=== PATIENT | female | born 1990 ===

== ENCOUNTER 2019-01-25 18:53 | Inpatient (IN) | payer MEDICAID ==
[2019-01-25 18:53] VITALS: BMI 29.0
[2019-01-25] MEDS ORDERED: Albuterol-Ipratrop 3 mg / 0.5 (3 ml) UD ONE (19:17)
[2019-01-25] MEDS ORDERED: Albuterol-Ipratrop 3 mg / 0.5 (3 ml) UD IH STA (19:29)
[2019-01-25] MEDS ORDERED: Albuterol 0.083% Inhal Sol (2.5 mg/3 mL) UD IH STA (19:29)
--- NOTE | 2019-01-25 19:34 | C.PDOC ---
History Of Present Illness 28 year old female presents to the ED complaining of nonproductive cough and wheezing for the last 3 weeks. Reports it started off only at night time and now it is associated with chest tightness and shortness of breath. Notes cough is worse at night and when she lays down. States she was [place] [facility] [place] given inhaler but notes minimal relief. Also reports she used an inhaler when she was previously diagnosed with esophagitis and vocal cord inflammation but she does not use it daily. Denies history of asthma or any other pulmonary disease. Denies fever, chills, abdominal pain, headache, dizziness, lightheadedness, or any other symptoms. Chief Complaint (Nursing): Shortness Of Breath History Per: Patient History/Exam Limitations: no limitations Onset/Duration Of Symptoms: Days Current Symptoms Are (Timing): Still Present Quality: Tightness Exacerbating Factor(s): Coughing Current Respiratory Medications: Albuterol Associated Symptoms: Other (chest tightness ). denies: Fever, Chills, Productive Cough, Dizziness, Light-headedness Reports Recently: Seen In ED Past Medical History Reviewed: Historical Data, Nursing Documentation, Vital Signs Vital Signs: Last Vital Signs Temp 98.2 F 01/25/19 19:18 Pulse 108 H 01/25/19 19:18 Resp 22 01/25/19 19:27 BP 108/71 01/25/19 19:18 Pulse Ox 98 01/25/19 19:27 - Medical History PMH: Gastritis Denies: Colonic Polyps, Chronic Kidney Disease, TIA Surgical History: Appendectomy Family History: States: No Known Family Hx - Social History Hx Alcohol Use: No Hx Substance Use: No - Immunization History Hx Tetanus Toxoid Vaccination: No Hx Influenza Vaccination: No Hx Pneumococcal Vaccination: No Review Of Systems Constitutional: Negative for: Fever, Chills Cardiovascular: Positive for: Other (chest tightness ). Negative for: Palpitations, Light Headedness Respiratory: Positive for: Cough, Shortness of Breath, Wheezing Gastrointestinal: Negative for: Nausea, Vomiting, Abdominal Pain, Diarrhea Musculoskeletal: Negative for: Back Pain Skin: Negative for: Rash Neurological: Negative for: Headache, Dizziness Physical Exam - Physical Exam Appears: Non-toxic, No Acute Distress Skin: Warm, Dry, No Rash Head: Normacephalic Eye(s): bilateral: PERRL, EOMI Nose: Normal Oral Mucosa: Moist Neck: Supple Chest: Symmetrical Cardiovascular: Rhythm Regular Respiratory: Decreased Breath Sounds, No Rales, No Rhonchi, Wheezing (Diffused inspiratory and expiratory wheezing ) Gastrointestinal/Abdominal: Soft, No Tenderness, No Guarding, No Rebound Extremity: Bilateral: No Pedal Edema, Normal Color And Temperature, Normal ROM Neurological/Psych: Oriented x3, Normal Speech Gait: Steady ED Course And Treatment - Laboratory Results Result Diagrams: 01/25/19 19:36 01/25/19 19:36 Lab Interpretation: No Acute Changes O2 Sat by Pulse Oximetry: 98 (RA) Pulse Ox Interpretation: Normal - Radiology CXR: Interpreted by Me CXR Interpretation: Yes: No Acute Disease Reevaluation Time: 21:17 Reassessment Condition: Unchanged (Still with diffuse inspiratory and expiratory wheezing with diminished breath sounds. Heart rate is 120 and she is still c/o chest tightness and burning.) - Physician Consult Information Time Consulting Physician Contacted: 21:18 Physician Contacted: Jessy Roberson Outcome Of Conversation: Patient to be admitted for bronchodilators and IV steroids. Medical Decision Making Medical Decision Making: Plan - EKG - Bloodwork - HCG - Prednisone 60mg PO - Neb Treatment - CXR Disposition - Disposition Disposition: HOSPITALIZED Disposition Time: 22:53 Condition: FAIR - POA Present On Arrival: None - Clinical Impression Clinical Impression: Respiratory distress, Bronchitis, Acute bronchospasm - Scribe Statement The provider has reviewed the documentation as recorded by the Scribe Deja Sanches All medical record entries made by the Scribe were at my direction and personally dictated by me. I have reviewed the chart and agree that the record accurately reflects my personal performance of the history, physical exam, medical decision making, and the department course for this patient. I have also personally directed, reviewed, and agree with the discharge instructions and disposition.
[2019-01-25 19:39] LABS: BASO # 0.1 K/uL (0.0-0.2); BASO % 1.2 % (0.0-2.0); EOS # 0.9 K/uL (0.0-0.7); EOS % 9.2 % (0.0-4.0); HEMOGLOBIN 14.4 g/dL (11.0-16.0); LYMPH # 1.6 K/uL (1.0-4.3); LYMPH % 16.4 % (20.0-40.0); MEAN CORPUSCULAR HEMOGLOBIN 29.6 pg (27.0-31.0); MEAN CORPUSCULAR HGB CONC 33.2 g/dL (33.0-37.0); MEAN PLATELET VOLUME 9.8 fL (7.2-11.7); MONO # 0.6 K/uL (0.0-0.8); MONO % 6.2 % (0.0-10.0); NEUT # 6.5 K/uL (1.8-7.0); RBC 4.86 Mil/uL (3.80-5.20); RED CELL DISTRIBUTION WIDTH 14.6 % (11.5-14.5); WHITE BLOOD COUNT 9.8 K/uL (4.8-10.8)
[2019-01-25 19:54] LABS: ALB/GLOB RATIO 1.4 (1.0-2.1); ALBUMIN 4.9 g/dL (3.5-5.0); ALT/SGPT 33 U/L (9-52); AST/SGOT 24 U/L (14-36); BLOOD UREA NITROGEN 10 mg/dL (7-17); CALCIUM 9.9 mg/dl (8.6-10.4); GFR NON-AFRICAN AMERICAN > 60
[2019-01-26] MEDS: Albuterol-Ipratrop 3 mg / 0.5 (3 ml) UD INH SCH ×4 (01:36→19:59)
[2019-01-26] MEDS ORDERED: guaiFENesin 100 mg/5 ml Syrup UD PO ONE (04:56)
--- NOTE | 2019-01-26 07:38 | CP.PCM.PN ---
Subjective - Date & Time of Evaluation Date of Evaluation: 01/26/19 Time of Evaluation: 07:38 - Subjective Subjective: Medicine Progress Note - Dr Percy Roberson's service Patient is a 28 year old female with past medical history of eosinophilic esophagitis who presented to the emergency room for worsening shortness of breath. Patient states that her symptoms started 3 weeks ago and was associated with chest pain. She states that she was feeling out of breath. Symptoms progressively became worse and she developed a non-productive cough. She [place] [facility] [place] and was given nebulizer and albuterol with no improvement. 3 nights ago she reports waking up out of her sleep because she couldn't breath. Patient also states that she has been having episodes of vomiting after eating food that started 1 week ago. She can only tolerate liqui ds. When she eats solid food she feels like it is stuck in her chest. She has had 3 endoscopies in the past, the last one was performed on 10/2016 that showed esophagitis. Patient has not follow up with her GI doctor since that time. Allergies: NKDA Medications: Famotadine, Albuterol Medical History: Gastritis/Esophagitis Surgical History: C/S x 2, EGD x 3 Social History: Denies alcohol, tobacco, drug use; lives with and two children Family History: Grandmother - DM, Grandfather - DM, Mother - arthritis Objective - Vital Signs/Intake and Output Vital Signs (last 24 hours): Temp Pulse Resp BP Pulse Ox 97.7 F 83 20 108/73 96 01/26/19 00:20 01/26/19 00:20 01/26/19 00:20 01/26/19 00:20 01/26/19 05:01 Intake and Output: 01/26/19 01/26/19 06:59 18:59 Intake Total 120 Balance 120 - Medications Medications: Current Medications Albuterol/Ipratropium (Duoneb 3 Mg/0.5 Mg (3 Ml) Ud) 3 ml INH RQ6 [facility] Last Admin: 01/26/19 01:36 Dose: 3 ml Enoxaparin Sodium (Lovenox) 40 mg SC DAILY [facility] Azithromycin 500 mg/ Sodium (Chloride) 250 mls @ 250 mls/hr IVPB DAILY [facility]; Protocol Ceftriaxone Sodium 1 gm/ (Sodium Chloride) 100 mls @ 100 mls/hr IVPB DAILY [facility]; Protocol Influenza Virus Vaccine (Flucelvax Quad 7553-7707 Syr) 60 mcg IM .ONCE ONE Stop: 01/28/19 10:11 Methylprednisolone (Solu-Medrol) 40 mg IVPB Q8H [facility] Montelukast Sodium (Singulair) 10 mg PO DAILY [facility] Morphine Sulfate (Morphine) 2 mg IVP Q6 PRN PRN Reason: Pain, Mild (1-3) Last Admin: 01/25/19 23:18 Dose: 2 mg Pantoprazole Sodium (Protonix Ec Tab) 40 mg PO DAILY [facility] Pneumococcal Polyvalent Vaccine (Pneumovax 23 Vaccine) 0.5 ml IM .ONCE ONE Stop: 01/28/19 10:01 - Labs Labs: 01/25/19 19:36 01/25/19 19:36 - Constitutional Appears: Non-toxic, In Acute Distress - Head Exam Head Exam: ATRAUMATIC, NORMAL INSPECTION, NORMOCEPHALIC - Eye Exam Eye Exam: EOMI, Normal appearance - ENT Exam ENT Exam: Mucous Membranes Moist - Neck Exam Neck Exam: Full ROM. absent: Lymphadenopathy, Tenderness - Respiratory Exam Respiratory Exam: Decreased Breath Sounds, Wheezes. absent: Rales, Rhonchi - Cardiovascular Exam Cardiovascular Exam: REGULAR RHYTHM, +S1, +S2 - GI/Abdominal Exam GI & Abdominal Exam: Soft. absent: Guarding, Rigid, Tenderness - Extremities Exam Extremities Exam: Normal Inspection. absent: Calf Tenderness - Neurological Exam Neurological Exam: Alert, Awake, Normal Gait, Oriented x3 - Psychiatric Exam Psychiatric exam: Normal Affect, Normal Mood - Skin Skin Exam: Dry, Normal Color, Warm Assessment and Plan - Assessment and Plan (Free Text) Assessment: Respiratory Distress 2/2 Acute bronchospasm/bronchitis -Stable, afebrile -CXR showed no active disease -Antibiotics: Rocephin 1 gm daily, Azithromycin 250mg daily -Continue Solumedrol 40mg Q8H IVP -Duonebs Q4H prn shortness of breath -Mucinex 600mg PO BID and phenergen 5ml Q6H prn cough -Pulmonology on consult, Dr Leo, help appreciated Dysphagia -Patient admits to dysphagia to solids for the past week -Has not seen GI in 3 years -Last EGD 10/2019 showed eosinophilic esophagitis -GI on consult, Dr Hadley, help appreciated GI/DVT ppx: -Protonix 40mg IVP daily -Lovenox 40mg SC daily Plan discussed with Dr Percy Doss DO PGY-2
--- NOTE | 2019-01-26 09:14 | RAD ---
Date of service: 01/25/2019 PROCEDURE: CHEST RADIOGRAPH, 1 VIEW HISTORY: SOB COMPARISON: None available. FINDINGS: LUNGS: Clear. PLEURA: No pneumothorax or pleural fluid seen. CARDIOVASCULAR: No aortic atherosclerotic calcification present. Normal. OSSEOUS STRUCTURES: No significant abnormalities. VISUALIZED UPPER ABDOMEN: Normal. OTHER FINDINGS: None. IMPRESSION: No active disease.
[2019-01-26] MEDS ORDERED: Azithromycin 500 MG in Sodium Chloride 0.9% 250 ML IVPB SCH (10:00)
[2019-01-26] MEDS ORDERED: Pantoprazole 40 mg EC Tab PO SCH (10:00)
[2019-01-26] MEDS: guaiFENesin 600 mg ER Tab PO SCH ×2 (10:34→17:39)
[2019-01-26] MEDS: Enoxaparin 40 mg Syringe SC SCH (10:35)
[2019-01-26] MEDS: MethylPREDNISolone 40 mg Vial IVPB SCH ×2 (10:35→17:38)
[2019-01-26] MEDS: Azithromycin 500 MG in Sodium Chloride 0.9% 250 ML IVPB SCH (11:50)
--- NOTE | 2019-01-26 12:47 | CP.PCM.HP ---
Present on Admission - Present on Admission Any Indicators Present on Admission: No Past Patient History - Past Medical History & Family History Past Medical History?: Yes - Past Social History Smoking Status: Never Smoked - CARDIAC Hx Cardiac Disorders: No Hx Heart Attack: No - PULMONARY Hx Respiratory Disorders: No - NEUROLOGICAL Hx Transient Ischemic Attacks (TIA): No - HEENT Hx HEENT Problems: No - RENAL Hx Chronic Kidney Disease: No - ENDOCRINE/METABOLIC Hx Endocrine Disorders: No - HEMATOLOGICAL/ONCOLOGICAL Hx Blood Disorders: No - INTEGUMENTARY Hx Dermatological Problems: No - MUSCULOSKELETAL/RHEUMATOLOGICAL Hx Musculoskeletal Disorders: No - GASTROINTESTINAL Hx Gastritis: Yes - GENITOURINARY/GYNECOLOGICAL Hx Genitourinary Disorders: No - PSYCHIATRIC Hx Substance Use: No - SURGICAL HISTORY Hx Appendectomy: Yes - ANESTHESIA Hx Anesthesia: Yes Hx Anesthesia Reactions: No Hx Malignant Hyperthermia: No Meds Allergies/Adverse Reactions: Allergies Allergy/AdvReac Type Severity Reaction Status Date / Time No Known Allergies Allergy Verified 01/25/19 19:26 Physical Exam - Constitutional Appears: Well - Head Exam Head Exam: ATRAUMATIC, NORMAL INSPECTION, NORMOCEPHALIC - Eye Exam Eye Exam: EOMI, Normal appearance, PERRL Pupil Exam: NORMAL ACCOMODATION, PERRL - ENT Exam ENT Exam: Mucous Membranes Moist, Normal Exam - Neck Exam Neck exam: Positive for: Normal Inspection - Respiratory Exam Respiratory Exam: Decreased Breath Sounds - Cardiovascular Exam Cardiovascular Exam: REGULAR RHYTHM, +S1, +S2 - GI/Abdominal Exam GI & Abdominal Exam: Diminished Bowel Sounds, Soft - Rectal Exam Rectal Exam: Deferred Results - Vital Signs Recent Vital Signs: Last Vital Signs Temp 97.9 F 01/26/19 07:30 Pulse 79 01/26/19 07:30 Resp 20 01/26/19 07:30 BP 124/82 01/26/19 07:30 Pulse Ox 96 01/26/19 07:30 - Labs Result Diagrams: 01/27/19 06:41 01/27/19 06:41 Labs: Laboratory Results - last 24 hr 01/25/19 01/25/19 01/25/19 19:36 19:36 22:26 WBC 9.8 RBC 4.86 Hgb 14.4 Hct 43.2 MCV 89.0 MCH 29.6 MCHC 33.2 RDW 14.6 H Plt Count 304 MPV 9.8 Neut % (Auto) 67.0 Lymph % (Auto) 16.4 L Banner % (Auto) 6.2 Eos % (Auto) 9.2 H Baso % (Auto) 1.2 Neut # (Auto) 6.5 Lymph # (Auto) 1.6 Banner # (Auto) 0.6 Eos # (Auto) 0.9 H Baso # (Auto) 0.1 Sodium 137 Potassium 3.6 Chloride 102 Carbon Dioxide 23 Anion Gap 16 BUN 10 Creatinine 0.9 Est GFR ( Amer) > 60 Est GFR (Non-Af Amer) > 60 Random Glucose 92 Calcium 9.9 Total Bilirubin 0.5 AST 24 ALT 33 Alkaline Phosphatase 83 Total Protein 8.4 H Albumin 4.9 Globulin 3.5 Albumin/Globulin Ratio 1.4 Urine HCG, Qual Negative Assessment & Plan - Assessment and Plan (Free Text) Plan: Status post GI Status post pulmonary Hemoglobin 14 and 43 Potassium 3.6 As per the GI except of induced emesis advised continue Protonix and change diet to lactose and gluten-free Supportive care Discussed with Dr. Madsen Status post pulmonary also recommended IgE and total eosinophil count to rule out allergy versus ABPA Continue IV steroid and other medication as ordered duoneb iv antibiotic
--- NOTE | 2019-01-26 14:27 | CP.PCM.CON ---
<Hemalatha Ibanez - Last Filed: 01/26/19 18:34> History of Present Illness - History of Present Illness History of Present Illness: Gastroenterology Fellow/PGY6 Consult Note 28 year old female with PMH of Eosinophilic esophagitis (EoE), HLD and Asthma presenting with shortness of breath and cough. Patient describes progressive dry cough and shortness of breath leading to bilious vomiting episode at least once a week for the last three weeks. She notes dyspnea on exertion, chest pain with breathing, and difficulty sleeping due to gasping for air from wheezing despite inhaler use received [place] [facility] [place]. Admits to chronic heartburn and acid reflux for the last 3-4 years that led to EoE diagnosis in 10/2016 for which she completed a remote course of inhaler use and Omeprazole 30 minutes before breakfast daily for one month. Notes exacerbation of acid reflux and heartburn since respiratory symptoms have worsened in the last three weeks. Also admits to globus sensation when eating without vomiting, dysphagia, odynophagia, or choking that is more apparent with her present cough and wax/wanes over last three to four years with EoE diagnosis. Patient note she was planned for ENT and GI outpatient evaluations in the next one month. Prior EGD 07/2016 and 10/20- showed Eosinophilic esophagitis (EoE) and H pylori gastritis s/p triple therapy with confirmed eradication. No prior colonoscopy. Family History- denies Eosinophilic esophagitis, stomach cancer, colon cancer Social History- denies tobacco, alcohol, illicit drug use Surgical History- appendectomy, C-sectionx2 Review of Systems - Review of Systems Review of Systems: 12-point review of systems negative except for as above Past Patient History - Past Medical History & Family History Past Medical History?: Yes - Past Social History Smoking Status: Never Smoked - CARDIAC Hx Cardiac Disorders: No Hx Heart Attack: No - PULMONARY Hx Respiratory Disorders: No - NEUROLOGICAL Hx Transient Ischemic Attacks (TIA): No - HEENT Hx HEENT Problems: No - RENAL Hx Chronic Kidney Disease: No - ENDOCRINE/METABOLIC Hx Endocrine Disorders: No - HEMATOLOGICAL/ONCOLOGICAL Hx Blood Disorders: No - INTEGUMENTARY Hx Dermatological Problems: No - MUSCULOSKELETAL/RHEUMATOLOGICAL Hx Musculoskeletal Disorders: No - GASTROINTESTINAL Hx Gastritis: Yes - GENITOURINARY/GYNECOLOGICAL Hx Genitourinary Disorders: No - PSYCHIATRIC Hx Substance Use: No - SURGICAL HISTORY Hx Appendectomy: Yes - ANESTHESIA Hx Anesthesia: Yes Hx Anesthesia Reactions: No Hx Malignant Hyperthermia: No Meds Allergies/Adverse Reactions: Allergies Allergy/AdvReac Type Severity Reaction Status Date / Time No Known Allergies Allergy Verified 01/25/19 19:26 - Medications Medications: Current Medications Albuterol/Ipratropium (Duoneb 3 Mg/0.5 Mg (3 Ml) Ud) 3 ml INH RQ6 [facility] Last Admin: 01/26/19 08:15 Dose: 3 ml Enoxaparin Sodium (Lovenox) 40 mg SC DAILY [facility] Last Admin: 01/26/19 10:35 Dose: 40 mg Guaifenesin (Mucinex La) 600 mg PO BID [facility] Last Admin: 01/26/19 10:34 Dose: 600 mg Ceftriaxone Sodium 1 gm/ (Sodium Chloride) 100 mls @ 100 mls/hr IVPB DAILY [facility]; Protocol Last Admin: 01/26/19 10:33 Dose: 100 mls/hr Azithromycin 500 mg/ Sodium (Chloride) 250 mls @ 250 mls/hr IVPB Q24H [facility]; Protocol Last Admin: 01/26/19 11:50 Dose: 250 mls/hr Influenza Virus Vaccine (Flucelvax Quad [id number] Syr) 60 mcg IM .ONCE ONE Stop: 01/28/19 10:11 Methylprednisolone (Solu-Medrol) 40 mg IVPB Q8H [facility] Last Admin: 01/26/19 10:35 Dose: 40 mg Montelukast Sodium (Singulair) 10 mg PO Q24H [facility] Last Admin: 01/26/19 12:27 Dose: 10 mg Morphine Sulfate (Morphine) 2 mg IVP Q6 PRN PRN Reason: Pain, Mild (1-3) Last Admin: 01/25/19 23:18 Dose: 2 mg Pantoprazole Sodium (Protonix Ec Tab) 40 mg PO DAILY [facility] Last Admin: 01/26/19 10:41 Dose: 40 mg Pneumococcal Polyvalent Vaccine (Pneumovax 23 Vaccine) 0.5 ml IM .ONCE ONE Stop: 01/28/19 10:01 Promethazine HCl/Dextromethorphan (Phenergan Dm Syrup) 5 ml PO Q6H PRN PRN Reason: Cough Physical Exam - Constitutional Appears: Non-toxic - Head Exam Head Exam: NORMOCEPHALIC - Eye Exam Eye Exam: EOMI, PERRL. absent: Scleral icterus Pupil Exam: absent: Miosis, Mydriatic - ENT Exam ENT Exam: Mucous Membranes Moist, Normal Oropharynx - Neck Exam Neck exam: Positive for: Full Rom, Normal Inspection - Respiratory Exam Respiratory Exam: Wheezes. absent: Rales, Stridor Additional comments: diffuse wheezing noted in all lung patel - Cardiovascular Exam Cardiovascular Exam: RRR, +S1, +S2. absent: Gallop, Rubs - GI/Abdominal Exam GI & Abdominal Exam: Normal Bowel Sounds, Soft. absent: Distended, Firm, Guarding, Organomegaly, Rebound, Rigid, Tenderness - Extremities Exam Extremities exam: Positive for: normal inspection. Negative for: pedal edema - Neurological Exam Neurological exam: Alert - Psychiatric Exam Psychiatric exam: Normal Affect, Normal Mood - Skin Skin Exam: Dry, Intact, Normal Color, Warm Results - Vital Signs Recent Vital Signs: Last Vital Signs Temp 97.9 F 01/26/19 07:30 Pulse 79 01/26/19 07:30 Resp 20 01/26/19 07:30 BP 124/82 01/26/19 07:30 Pulse Ox 94 L 01/26/19 13:10 - Labs Result Diagrams: 01/25/19 19:36 01/25/19 19:36 Labs: Laboratory Results - last 24 hr 01/25/19 01/25/19 01/25/19 19:36 19:36 22:26 WBC 9.8 RBC 4.86 Hgb 14.4 Hct 43.2 MCV 89.0 MCH 29.6 MCHC 33.2 RDW 14.6 H Plt Count 304 MPV 9.8 Neut % (Auto) 67.0 Lymph % (Auto) 16.4 L Lawrence % (Auto) 6.2 Eos % (Auto) 9.2 H Baso % (Auto) 1.2 Neut # (Auto) 6.5 Lymph # (Auto) 1.6 Lawrence # (Auto) 0.6 Eos # (Auto) 0.9 H Baso # (Auto) 0.1 Sodium 137 Potassium 3.6 Chloride 102 Carbon Dioxide 23 Anion Gap 16 BUN 10 Creatinine 0.9 Est GFR ( Amer) > 60 Est GFR (Non-Af Amer) > 60 Random Glucose 92 Calcium 9.9 Total Bilirubin 0.5 AST 24 ALT 33 Alkaline Phosphatase 83 Total Protein 8.4 H Albumin 4.9 Globulin 3.5 Albumin/Globulin Ratio 1.4 Urine HCG, Qual Negative Assessment & Plan - Assessment and Plan (Free Text) Assessment: 28 year old female with PMH of Eosinophilic esophagitis (EoE), HLD and Asthma presenting with shortness of breath and cough. Active treatment of Bronchitis with GI consultation for vomiting and history of EoE. Prior EGD 07/2016 and 10/2016 showed Eosinophilic esophagitis (EoE) and H pylori gastritis s/p triple therapy with confirmed eradication. No prior colonoscopy. Plan: -likely cough-induced emesis-no further episodes since admission -acute on chronic dyspepsia in setting of noncompliance to treatment and physician follow up of eosinophilic esophagitis since 2015 -started Protonix 40mg BID -changed diet to lactose/gluten free, bite size for initiation of elimination diet in setting of eosinophilic esophagitis -supportive care- anti-emetics -primary team managing respiratory status- steroids, duonebs, antibiotic coverage -pulmonology consult- follow up recommendations -counselled on compliance and re-establishment of GI care -patient notes scheduled appointments with ENT and GI in one month -will benefit from elective endoscopic evaluation of EoE once respiratory status optimized -will follow clinical course <Lucho Hadley - Last Filed: 01/26/19 18:49> Meds - Medications Medications: Current Medications Albuterol/Ipratropium (Duoneb 3 Mg/0.5 Mg (3 Ml) Ud) 3 ml INH RQ6 [facility] Last Admin: 01/26/19 13:40 Dose: 3 ml Budesonide (Pulmicort Respules) 0.5 mg INH RQ12 [facility] Enoxaparin Sodium (Lovenox) 40 mg SC DAILY [facility] Last Admin: 01/26/19 10:35 Dose: 40 mg Guaifenesin (Mucinex La) 600 mg PO BID [facility] Last Admin: 01/26/19 17:39 Dose: 600 mg Ceftriaxone Sodium 1 gm/ (Sodium Chloride) 100 mls @ 100 mls/hr IVPB DAILY [facility]; Protocol Last Admin: 01/26/19 10:33 Dose: 100 mls/hr Azithromycin 500 mg/ Sodium (Chloride) 250 mls @ 250 mls/hr IVPB Q24H [facility]; Protocol Last Admin: 01/26/19 11:50 Dose: 250 mls/hr Influenza Virus Vaccine (Flucelvax Quad [id number] Syr) 60 mcg IM .ONCE ONE Stop: 01/27/19 10:01 Methylprednisolone (Solu-Medrol) 40 mg IVPB Q8H [facility] Last Admin: 01/26/19 17:38 Dose: 40 mg Montelukast Sodium (Singulair) 10 mg PO Q24H [facility] Last Admin: 01/26/19 12:27 Dose: 10 mg Montelukast Sodium (Singulair) 10 mg PO HS [facility] Morphine Sulfate (Morphine) 2 mg IVP Q6 PRN PRN Reason: Pain, Mild (1-3) Last Admin: 01/25/19 23:18 Dose: 2 mg Pantoprazole Sodium (Protonix Inj) 40 mg IVP Q12H [facility] Pneumococcal Polyvalent Vaccine (Pneumovax 23 Vaccine) 0.5 ml IM .ONCE ONE Stop: 01/27/19 10:01 Promethazine HCl/Dextromethorphan (Phenergan Dm Syrup) 5 ml PO Q6H PRN PRN Reason: Cough Results - Vital Signs Recent Vital Signs: Last Vital Signs Temp 98.2 F 01/26/19 15:00 Pulse 106 H 01/26/19 15:00 Resp 22 01/26/19 16:23 BP 109/66 01/26/19 15:00 Pulse Ox 95 01/26/19 18:29 - Labs Result Diagrams: 01/25/19 19:36 01/25/19 19:36 Labs: Laboratory Results - last 24 hr 01/25/19 01/25/19 01/25/19 19:36 19:36 22:26 WBC 9.8 RBC 4.86 Hgb 14.4 Hct 43.2 MCV 89.0 MCH 29.6 MCHC 33.2 RDW 14.6 H Plt Count 304 MPV 9.8 Neut % (Auto) 67.0 Lymph % (Auto) 16.4 L Lawrence % (Auto) 6.2 Eos % (Auto) 9.2 H Baso % (Auto) 1.2 Neut # (Auto) 6.5 Lymph # (Auto) 1.6 Lawrence # (Auto) 0.6 Eos # (Auto) 0.9 H Baso # (Auto) 0.1 Sodium 137 Potassium 3.6 Chloride 102 Carbon Dioxide 23 Anion Gap 16 BUN 10 Creatinine 0.9 Est GFR ( Amer) > 60 Est GFR (Non-Af Amer) > 60 Random Glucose 92 Calcium 9.9 Total Bilirubin 0.5 AST 24 ALT 33 Alkaline Phosphatase 83 Total Protein 8.4 H Albumin 4.9 Globulin 3.5 Albumin/Globulin Ratio 1.4 Urine HCG, Qual Negative Attending/Attestation - Attestation I have personally seen and examined this patient.: Yes I have fully participated in the care of the patient.: Yes I have reviewed all pertinent clinical information: Yes Notes (Text): 01/26/19 18:44 I have seen and examined patient with GI fellow. Agree with above documentation with the following additions. In brief, this is a 28 year old female with history of asthma, hyperlipidemia, eosinophillic esophagitis who presents to hospital with complaint of progressive cough and shortness of breath. She reports persistent non-productive cough leading to associated emesis for the past three weeks which has been worse over the past few days. She notes dyspnea on exertion and wheezing at rest despite medical therapy and was recently admitted at [facility] [place] for respiratory related issues. During this time she does note dysphagia to solids with a globus sensation but denies odynophagia or vomiting. She had an EGD in [address] Lerma which showed presence of EOE on biopsies from distal and mid esophagus and was told to follow up but did not do so. She denies fever/chills, weight loss, or change in bowel habits. Asthma Hyperlipidemia Cough, dyspnea EOE - Suggest diet as tolerated with modification to eliminate dairy/wheat as a part of initial food elimination therapy in EOE - Continue with PPI therapy - Follow up pulmonary recommendations for management of acute bronchitis - Patient would benefit from elective outpatient GI follow up with consideration of additional EOE therapy with endoscopic evaluation - Will continue to monitor patient clinical course
[2019-01-26] MEDS ORDERED: Pneumococcal 23-Valent Vaccine IM ONE (15:15)
[2019-01-26] MEDS ORDERED: Influenza Vaccine 60 mcg/0.5 mL SYR (4YR UP) IM ONE (15:15)
--- NOTE | 2019-01-26 18:21 | CP.PCM.CON ---
History of Present Illness - History of Present Illness History of Present Illness: Reason for consultation: Shortness of breath and cough 28-year-old female with history of asthma/eosinophilic esophagitis, hyperlipide yolanda admitted with shortness of breath and cough for the past 2-3 weeks. Patient states that she was seen in the emergency room at [facility] week ago. Denies fever chills, denies chest pain. Also complaining of heartburn and indigestion. Family History- denies Eosinophilic esophagitis, stomach cancer, colon cancer Social History- denies tobacco, alcohol, illicit drug use Surgical History- appendectomy, C-sectionx2 Review of Systems - Review of Systems All systems: reviewed and no additional remarkable complaints except (Shortness of breath and wheezing) Past Patient History - Past Medical History & Family History Past Medical History?: Yes - Past Social History Smoking Status: Never Smoked - CARDIAC Hx Cardiac Disorders: No Hx Heart Attack: No - PULMONARY Hx Respiratory Disorders: No - NEUROLOGICAL Hx Transient Ischemic Attacks (TIA): No - HEENT Hx HEENT Problems: No - RENAL Hx Chronic Kidney Disease: No - ENDOCRINE/METABOLIC Hx Endocrine Disorders: No - HEMATOLOGICAL/ONCOLOGICAL Hx Blood Disorders: No - INTEGUMENTARY Hx Dermatological Problems: No - MUSCULOSKELETAL/RHEUMATOLOGICAL Hx Musculoskeletal Disorders: No - GASTROINTESTINAL Hx Gastritis: Yes - GENITOURINARY/GYNECOLOGICAL Hx Genitourinary Disorders: No - PSYCHIATRIC Hx Substance Use: No - SURGICAL HISTORY Hx Appendectomy: Yes - ANESTHESIA Hx Anesthesia: Yes Hx Anesthesia Reactions: No Hx Malignant Hyperthermia: No Meds Allergies/Adverse Reactions: Allergies Allergy/AdvReac Type Severity Reaction Status Date / Time No Known Allergies Allergy Verified 01/25/19 19:26 - Medications Medications: Current Medications Albuterol/Ipratropium (Duoneb 3 Mg/0.5 Mg (3 Ml) Ud) 3 ml INH RQ6 [facility] Last Admin: 01/26/19 13:40 Dose: 3 ml Enoxaparin Sodium (Lovenox) 40 mg SC DAILY [facility] Last Admin: 01/26/19 10:35 Dose: 40 mg Guaifenesin (Mucinex La) 600 mg PO BID [facility] Last Admin: 01/26/19 17:39 Dose: 600 mg Ceftriaxone Sodium 1 gm/ (Sodium Chloride) 100 mls @ 100 mls/hr IVPB DAILY [facility]; Protocol Last Admin: 01/26/19 10:33 Dose: 100 mls/hr Azithromycin 500 mg/ Sodium (Chloride) 250 mls @ 250 mls/hr IVPB Q24H [facility]; Protocol Last Admin: 01/26/19 11:50 Dose: 250 mls/hr Influenza Virus Vaccine (Flucelvax Quad 7943-4587 Syr) 60 mcg IM .ONCE ONE Stop: 01/27/19 10:01 Methylprednisolone (Solu-Medrol) 40 mg IVPB Q8H [facility] Last Admin: 01/26/19 17:38 Dose: 40 mg Montelukast Sodium (Singulair) 10 mg PO Q24H [facility] Last Admin: 01/26/19 12:27 Dose: 10 mg Morphine Sulfate (Morphine) 2 mg IVP Q6 PRN PRN Reason: Pain, Mild (1-3) Last Admin: 01/25/19 23:18 Dose: 2 mg Pantoprazole Sodium (Protonix Inj) 40 mg IVP Q12H [facility] Pneumococcal Polyvalent Vaccine (Pneumovax 23 Vaccine) 0.5 ml IM .ONCE ONE Stop: 01/27/19 10:01 Promethazine HCl/Dextromethorphan (Phenergan Dm Syrup) 5 ml PO Q6H PRN PRN Reason: Cough Physical Exam - Head Exam Head Exam: ATRAUMATIC, NORMOCEPHALIC - Eye Exam Eye Exam: Normal appearance - ENT Exam ENT Exam: Mucous Membranes Moist - Neck Exam Neck exam: Positive for: Normal Inspection - Respiratory Exam Respiratory Exam: Rhonchi, Wheezes - Cardiovascular Exam Cardiovascular Exam: REGULAR RHYTHM - GI/Abdominal Exam GI & Abdominal Exam: Normal Bowel Sounds, Soft - Extremities Exam Extremities exam: Positive for: normal inspection - Neurological Exam Neurological exam: Alert, Oriented x3 Results - Vital Signs Recent Vital Signs: Last Vital Signs Temp 98.2 F 01/26/19 15:00 Pulse 106 H 01/26/19 15:00 Resp 22 01/26/19 16:23 BP 109/66 01/26/19 15:00 Pulse Ox 95 01/26/19 15:00 - Labs Result Diagrams: 01/27/19 06:41 01/27/19 06:41 Labs: Laboratory Results - last 24 hr 01/25/19 01/25/19 01/25/19 19:36 19:36 22:26 WBC 9.8 RBC 4.86 Hgb 14.4 Hct 43.2 MCV 89.0 MCH 29.6 MCHC 33.2 RDW 14.6 H Plt Count 304 MPV 9.8 Neut % (Auto) 67.0 Lymph % (Auto) 16.4 L Casey % (Auto) 6.2 Eos % (Auto) 9.2 H Baso % (Auto) 1.2 Neut # (Auto) 6.5 Lymph # (Auto) 1.6 Casey # (Auto) 0.6 Eos # (Auto) 0.9 H Baso # (Auto) 0.1 Sodium 137 Potassium 3.6 Chloride 102 Carbon Dioxide 23 Anion Gap 16 BUN 10 Creatinine 0.9 Est GFR ( Amer) > 60 Est GFR (Non-Af Amer) > 60 Random Glucose 92 Calcium 9.9 Total Bilirubin 0.5 AST 24 ALT 33 Alkaline Phosphatase 83 Total Protein 8.4 H Albumin 4.9 Globulin 3.5 Albumin/Globulin Ratio 1.4 Urine HCG, Qual Negative Assessment & Plan (1) Acute bronchospasm Assessment and Plan: Most likely secondary to asthma exacerbation Patient with very high eosinophil count, rule out secondary to allergy versus ABPA IgE level and total eosinophil count Continue IV steroids, Singulair and nebulizer treatment Peak flow every shift Status: Acute (2) Bronchitis Status: Acute
[2019-01-26] MEDS: Budesonide 0.5 mg/2 ml Inhal Susp UD INH SCH (19:59)
[2019-01-26] MEDS: Promethazine DM 6.25 mg-15 mg/5 ml Syrup PO PRN (20:48)
[2019-01-27] MEDS: MethylPREDNISolone 40 mg Vial IVPB SCH ×3 (00:34→16:49)
[2019-01-27] MEDS: Albuterol-Ipratrop 3 mg / 0.5 (3 ml) UD INH SCH ×4 (01:33→19:37)
[2019-01-27] MEDS: Promethazine DM 6.25 mg-15 mg/5 ml Syrup PO PRN (04:41)
[2019-01-27 06:52] LABS: BASO % 0.2 % (0.0-2.0); HEMOGLOBIN 13.1 g/dL (11.0-16.0); LYMPH # 1.1 K/uL (1.0-4.3); LYMPH % 5.9 % (20.0-40.0); MEAN CELL VOLUME 90.1 fL (81.0-99.0); MEAN CORPUSCULAR HEMOGLOBIN 29.2 pg (27.0-31.0); MEAN CORPUSCULAR HGB CONC 32.4 g/dL (33.0-37.0); MEAN PLATELET VOLUME 10.2 fL (7.2-11.7); MONO # 0.5 K/uL (0.0-0.8); MONO % 2.8 % (0.0-10.0); NEUT # 16.8 K/uL (1.8-7.0); NEUT % 91.1 % (50.0-75.0); PLATELET COUNT 301 K/uL (130-400); RBC 4.49 Mil/uL (3.80-5.20); RED CELL DISTRIBUTION WIDTH 14.3 % (11.5-14.5); WHITE BLOOD COUNT 18.5 K/uL (4.8-10.8)
[2019-01-27 08:01] LABS: ALB/GLOB RATIO 1.3 (1.0-2.1); ALBUMIN 4.2 g/dL (3.5-5.0); ALT/SGPT 24 U/L (9-52); AST/SGOT 23 U/L (14-36); BLOOD UREA NITROGEN 14 mg/dL (7-17); CALCIUM 9.7 mg/dl (8.6-10.4); GFR NON-AFRICAN AMERICAN > 60
--- NOTE | 2019-01-27 08:19 | CP.PCM.PN ---
<Hemalatha Ibanez - Last Filed: 01/27/19 11:01> Subjective - Date & Time of Evaluation Date of Evaluation: 01/27/19 Time of Evaluation: 08:14 - Subjective Subjective: Gastroenterology Fellow/PGY6 Progress Note Patient notes sore throat but resolved cough. Heartburn and acid reflux improving. Continues to have bloating. No bowel movement yesterday. A 12-point review of systems negative except for as above. Objective - Vital Signs/Intake and Output Vital Signs (last 24 hours): Temp Pulse Resp BP Pulse Ox 97.9 F 79 20 102/65 96 01/27/19 08:07 01/27/19 08:07 01/27/19 08:07 01/27/19 08:07 01/27/19 08:07 Intake and Output: 01/27/19 01/27/19 06:59 18:59 Intake Total 470 Balance 470 - Medications Medications: Current Medications Albuterol/Ipratropium (Duoneb 3 Mg/0.5 Mg (3 Ml) Ud) 3 ml INH RQ6 [facility] Last Admin: 01/27/19 01:33 Dose: 3 ml Budesonide (Pulmicort Respules) 0.5 mg INH RQ12 [facility] Last Admin: 01/26/19 19:59 Dose: 0.5 mg Enoxaparin Sodium (Lovenox) 40 mg SC DAILY [facility] Last Admin: 01/26/19 10:35 Dose: 40 mg Guaifenesin (Mucinex La) 600 mg PO BID [facility] Last Admin: 01/26/19 17:39 Dose: 600 mg Ceftriaxone Sodium 1 gm/ (Sodium Chloride) 100 mls @ 100 mls/hr IVPB DAILY [facility]; Protocol Last Admin: 01/26/19 10:33 Dose: 100 mls/hr Azithromycin 500 mg/ Sodium (Chloride) 250 mls @ 250 mls/hr IVPB Q24H [facility]; Protocol Last Admin: 01/26/19 11:50 Dose: 250 mls/hr Influenza Virus Vaccine (Flucelvax Quad 3898-5118 Syr) 60 mcg IM .ONCE ONE Stop: 01/27/19 10:01 Methylprednisolone (Solu-Medrol) 40 mg IVPB Q8H [facility] Last Admin: 01/27/19 00:34 Dose: 40 mg Montelukast Sodium (Singulair) 10 mg PO Q24H [facility] Last Admin: 01/26/19 12:27 Dose: 10 mg Montelukast Sodium (Singulair) 10 mg PO HS [facility] Last Admin: 01/26/19 21:42 Dose: 10 mg Morphine Sulfate (Morphine) 2 mg IVP Q6 PRN PRN Reason: Pain, Mild (1-3) Last Admin: 01/25/19 23:18 Dose: 2 mg Pantoprazole Sodium (Protonix Inj) 40 mg IVP Q12H [facility] Last Admin: 01/27/19 04:37 Dose: 40 mg Pneumococcal Polyvalent Vaccine (Pneumovax 23 Vaccine) 0.5 ml IM .ONCE ONE Stop: 01/27/19 10:01 Promethazine HCl/Dextromethorphan (Phenergan Dm Syrup) 5 ml PO Q6H PRN PRN Reason: Cough Last Admin: 01/27/19 04:41 Dose: 5 ml - Labs Labs: 01/27/19 06:41 01/27/19 06:41 - Constitutional Appears: Non-toxic, No Acute Distress - Head Exam Head Exam: ATRAUMATIC, NORMOCEPHALIC - Eye Exam Eye Exam: EOMI, PERRL. absent: Scleral icterus Pupil Exam: PERRL. absent: Miosis, Mydriatic - ENT Exam ENT Exam: Mucous Membranes Moist, Normal Oropharynx - Neck Exam Neck Exam: Full ROM, Normal Inspection - Respiratory Exam Respiratory Exam: Clear to Ausculation Bilateral. absent: Rales, Rhonchi, Wheezes - Cardiovascular Exam Cardiovascular Exam: RRR, +S1, +S2. absent: Gallop, Rubs - GI/Abdominal Exam GI & Abdominal Exam: Soft, Normal Bowel Sounds. absent: Distended, Firm, Guarding, Rigid, Tenderness, Organomegaly, Rebound - Extremities Exam Extremities Exam: Normal Inspection - Neurological Exam Neurological Exam: Alert, Awake - Psychiatric Exam Psychiatric exam: Normal Affect, Normal Mood - Skin Skin Exam: Dry, Intact, Normal Color, Warm Assessment and Plan - Assessment and Plan (Free Text) Assessment: 28 year old female with PMH of Eosinophilic esophagitis (EoE), HLD and Asthma presenting with shortness of breath and cough. Active treatment of Bronchitis with GI consultation for vomiting and history of EoE. Prior EGD 07/2016 and 10/2016 showed Eosinophilic esophagitis (EoE) and H pylori gastritis s/p triple therapy with confirmed eradication. No prior colonoscopy. Plan: -resolved cough-induced emesis -continue modified diet with initiation of elimination diet-dairy, wheat -pulmonology managing bronchitis- follow up recommendations -continue PPI BID on discharge for EoE management -recommend outpatient GI follow up for continued re-evaluation of EoE once respiratory status optimized for repeat endoscopic evaluation -please contact with questions or concerns <Lucho Hadley - Last Filed: 01/27/19 11:33> Objective - Vital Signs/Intake and Output Vital Signs (last 24 hours): Temp Pulse Resp BP Pulse Ox 97.9 F 79 20 102/65 96 01/27/19 08:07 01/27/19 08:07 01/27/19 08:07 01/27/19 08:07 01/27/19 08:07 Intake and Output: 01/27/19 01/27/19 06:59 18:59 Intake Total 470 Balance 470 - Medications Medications: Current Medications Albuterol/Ipratropium (Duoneb 3 Mg/0.5 Mg (3 Ml) Ud) 3 ml INH RQ6 [facility] Last Admin: 01/27/19 08:40 Dose: 3 ml Budesonide (Pulmicort Respules) 0.5 mg INH RQ12 [facility] Last Admin: 01/27/19 08:40 Dose: 0.5 mg Enoxaparin Sodium (Lovenox) 40 mg SC DAILY [facility] Last Admin: 01/27/19 09:16 Dose: 40 mg Guaifenesin (Mucinex La) 600 mg PO BID [facility] Last Admin: 01/27/19 09:17 Dose: 600 mg Ceftriaxone Sodium 1 gm/ (Sodium Chloride) 100 mls @ 100 mls/hr IVPB DAILY [facility]; Protocol Last Admin: 01/27/19 09:55 Dose: 100 mls/hr Azithromycin 500 mg/ Sodium (Chloride) 250 mls @ 250 mls/hr IVPB Q24H [facility]; Protocol Last Admin: 01/27/19 11:13 Dose: 250 mls/hr Methylprednisolone (Solu-Medrol) 40 mg IVPB Q8H [facility] Last Admin: 01/27/19 08:45 Dose: 40 mg Montelukast Sodium (Singulair) 10 mg PO Q24H [facility] Last Admin: 01/27/19 11:28 Dose: 10 mg Montelukast Sodium (Singulair) 10 mg PO HS [facility] Last Admin: 01/26/19 21:42 Dose: 10 mg Morphine Sulfate (Morphine) 2 mg IVP Q6 PRN PRN Reason: Pain, Mild (1-3) Last Admin: 01/25/19 23:18 Dose: 2 mg Pantoprazole Sodium (Protonix Inj) 40 mg IVP Q12H [facility] Last Admin: 01/27/19 04:37 Dose: 40 mg Promethazine HCl/Dextromethorphan (Phenergan Dm Syrup) 5 ml PO Q6H PRN PRN Reason: Cough Last Admin: 01/27/19 04:41 Dose: 5 ml - Labs Labs: 01/27/19 06:41 01/27/19 06:41 Attending/Attestation - Attestation I have personally seen and examined this patient.: Yes I have fully participated in the care of the patient.: Yes I have reviewed all pertinent clinical information, including history, physical exam and plan: Yes Notes (Text): 01/27/19 11:32 I have seen and examined patient with GI fellow. No acute events overnight, she is seen resting in bed comfortably. Cough is improved and she denies nausea, vomiting, fever/chills. Asthma, acute bronchitis EOE Hyperlipidemia - Diet as tolerated - Avoidance of dairy and wheat as part of 2 food elimination diet in EOE - Follow up pulmonary recommendations - Continue with PPI therapy - Patient would benefit from additional outpatient follow up with consideration of EGD to help guide EOE management. No further planned GI intervention at this time, will sign off case. Please reconsult as necessary, thank you.
[2019-01-27 08:37] LABS: BANDS 10 % (0-2); LYMPHOCYTE 2 % (20-40); MONOCYTE 1 % (0-10); NEUTROPHIL 85 % (50-75); PLATELET ESTIMATE NORMAL (NORMAL); REACTIVE LYMPHOCYTES 2 % (0-0); TOTAL CELLS COUNTED 100
[2019-01-27] MEDS: Budesonide 0.5 mg/2 ml Inhal Susp UD INH SCH ×2 (08:40→19:37)
[2019-01-27] MEDS: Enoxaparin 40 mg Syringe SC SCH (09:16)
[2019-01-27] MEDS: guaiFENesin 600 mg ER Tab PO SCH ×2 (09:17→17:00)
[2019-01-27] MEDS ORDERED: Pneumococcal 23-Valent Vaccine IM ONE (10:00)
[2019-01-27] MEDS ORDERED: Influenza Vaccine 60 mcg/0.5 mL SYR (4YR UP) IM ONE (10:00)
--- NOTE | 2019-01-27 10:00 | CP.PCM.PN ---
Subjective - Date & Time of Evaluation Date of Evaluation: 01/27/19 Time of Evaluation: 08:00 - Subjective Subjective: Patient seen and examined Breathing and cough improving Afebrile Awake and responsive Objective - Vital Signs/Intake and Output Vital Signs (last 24 hours): Temp Pulse Resp BP Pulse Ox 97.9 F 79 20 102/65 96 01/27/19 08:07 01/27/19 08:07 01/27/19 08:07 01/27/19 08:07 01/27/19 08:07 Intake and Output: 01/27/19 01/27/19 06:59 18:59 Intake Total 470 Balance 470 - Medications Medications: Current Medications Albuterol/Ipratropium (Duoneb 3 Mg/0.5 Mg (3 Ml) Ud) 3 ml INH RQ6 [facility] Last Admin: 01/27/19 01:33 Dose: 3 ml Budesonide (Pulmicort Respules) 0.5 mg INH RQ12 [facility] Last Admin: 01/26/19 19:59 Dose: 0.5 mg Enoxaparin Sodium (Lovenox) 40 mg SC DAILY [facility] Last Admin: 01/27/19 09:16 Dose: 40 mg Guaifenesin (Mucinex La) 600 mg PO BID [facility] Last Admin: 01/27/19 09:17 Dose: 600 mg Ceftriaxone Sodium 1 gm/ (Sodium Chloride) 100 mls @ 100 mls/hr IVPB DAILY [facility]; Protocol Last Admin: 01/27/19 09:55 Dose: 100 mls/hr Azithromycin 500 mg/ Sodium (Chloride) 250 mls @ 250 mls/hr IVPB Q24H [facility]; Protocol Last Admin: 01/26/19 11:50 Dose: 250 mls/hr Influenza Virus Vaccine (Flucelvax Quad [id number] Syr) 60 mcg IM .ONCE ONE Stop: 01/27/19 10:01 Last Admin: 01/27/19 09:16 Dose: 60 mcg Methylprednisolone (Solu-Medrol) 40 mg IVPB Q8H [facility] Last Admin: 01/27/19 08:45 Dose: 40 mg Montelukast Sodium (Singulair) 10 mg PO Q24H [facility] Last Admin: 01/26/19 12:27 Dose: 10 mg Montelukast Sodium (Singulair) 10 mg PO HS [facility] Last Admin: 01/26/19 21:42 Dose: 10 mg Morphine Sulfate (Morphine) 2 mg IVP Q6 PRN PRN Reason: Pain, Mild (1-3) Last Admin: 01/25/19 23:18 Dose: 2 mg Pantoprazole Sodium (Protonix Inj) 40 mg IVP Q12H [facility] Last Admin: 01/27/19 04:37 Dose: 40 mg Pneumococcal Polyvalent Vaccine (Pneumovax 23 Vaccine) 0.5 ml IM .ONCE ONE Stop: 01/27/19 10:01 Last Admin: 01/27/19 09:18 Dose: Not Given Promethazine HCl/Dextromethorphan (Phenergan Dm Syrup) 5 ml PO Q6H PRN PRN Reason: Cough Last Admin: 01/27/19 04:41 Dose: 5 ml - Labs Labs: 01/27/19 06:41 01/27/19 06:41 - Head Exam Head Exam: ATRAUMATIC, NORMOCEPHALIC - ENT Exam ENT Exam: Mucous Membranes Moist - Neck Exam Neck Exam: Normal Inspection - Respiratory Exam Respiratory Exam: Rhonchi - Cardiovascular Exam Cardiovascular Exam: REGULAR RHYTHM - GI/Abdominal Exam GI & Abdominal Exam: Soft, Normal Bowel Sounds - Extremities Exam Extremities Exam: Normal Inspection - Neurological Exam Neurological Exam: Alert Assessment and Plan (1) Acute bronchospasm Assessment & Plan: Secondary to asthma exacerbation with elevated eosinophil count and the CBC Unlikely ABPA with normal total eosinophil count Continue IV steroids, nebulizer treatment and Singulair Follow-up IgE level Status: Acute (2) Bronchitis Status: Acute
[2019-01-27] MEDS: Azithromycin 500 MG in Sodium Chloride 0.9% 250 ML IVPB SCH (11:13)
--- NOTE | 2019-01-27 12:25 | CP.PCM.PN ---
Subjective - Date & Time of Evaluation Date of Evaluation: 01/27/19 Time of Evaluation: 12:25 - Subjective Subjective: Medicine Progress Note: Dr. Renu Roberson Service Patient seen and examined at bedside. Per nursing no acute events occurred overnight. Patient still reporting cough during today's examination. Patient denies any fevers, chills, headaches, dizziness, syncopal episodes, or any other complaints. Objective - Vital Signs/Intake and Output Vital Signs (last 24 hours): Temp Pulse Resp BP Pulse Ox 97.9 F 79 20 102/65 96 01/27/19 08:07 01/27/19 08:07 01/27/19 08:07 01/27/19 08:07 01/27/19 08:07 Intake and Output: 01/27/19 01/27/19 06:59 18:59 Intake Total 470 Balance 470 - Medications Medications: Current Medications Albuterol/Ipratropium (Duoneb 3 Mg/0.5 Mg (3 Ml) Ud) 3 ml INH RQ6 [facility] Last Admin: 01/27/19 08:40 Dose: 3 ml Budesonide (Pulmicort Respules) 0.5 mg INH RQ12 [facility] Last Admin: 01/27/19 08:40 Dose: 0.5 mg Enoxaparin Sodium (Lovenox) 40 mg SC DAILY [facility] Last Admin: 01/27/19 09:16 Dose: 40 mg Guaifenesin (Mucinex La) 600 mg PO BID [facility] Last Admin: 01/27/19 09:17 Dose: 600 mg Ceftriaxone Sodium 1 gm/ (Sodium Chloride) 100 mls @ 100 mls/hr IVPB DAILY [facility]; Protocol Last Admin: 01/27/19 09:55 Dose: 100 mls/hr Azithromycin 500 mg/ Sodium (Chloride) 250 mls @ 250 mls/hr IVPB Q24H [facility]; Protocol Last Admin: 01/27/19 11:13 Dose: 250 mls/hr Methylprednisolone (Solu-Medrol) 40 mg IVPB Q8H [facility] Last Admin: 01/27/19 08:45 Dose: 40 mg Montelukast Sodium (Singulair) 10 mg PO Q24H [facility] Last Admin: 01/27/19 11:28 Dose: 10 mg Montelukast Sodium (Singulair) 10 mg PO HS [facility] Last Admin: 01/26/19 21:42 Dose: 10 mg Morphine Sulfate (Morphine) 2 mg IVP Q6 PRN PRN Reason: Pain, Mild (1-3) Last Admin: 01/25/19 23:18 Dose: 2 mg Pantoprazole Sodium (Protonix Inj) 40 mg IVP Q12H [facility] Last Admin: 01/27/19 04:37 Dose: 40 mg Promethazine HCl/Dextromethorphan (Phenergan Dm Syrup) 5 ml PO Q6H PRN PRN Reason: Cough Last Admin: 01/27/19 04:41 Dose: 5 ml - Labs Labs: 01/27/19 06:41 01/27/19 06:41 - Head Exam Head Exam: ATRAUMATIC, NORMAL INSPECTION - Eye Exam Eye Exam: EOMI, Normal appearance, PERRL Pupil Exam: NORMAL ACCOMODATION, PERRL - ENT Exam ENT Exam: Mucous Membranes Moist, Normal Oropharynx - Respiratory Exam Respiratory Exam: Clear to Ausculation Bilateral, NORMAL BREATHING PATTERN. absent: Prolonged Expiratory Phase, Respiratory Distress - Cardiovascular Exam Cardiovascular Exam: REGULAR RHYTHM, +S1, +S2 - GI/Abdominal Exam GI & Abdominal Exam: Soft, Normal Bowel Sounds Assessment and Plan - Assessment and Plan (Free Text) Plan: Respiratory Distress 2/2 Acute bronchospasm/bronchitis -Stable, afebrile -CXR showed no active disease -Antibiotics: Rocephin 1 gm daily, Azithromycin 250mg daily -Continue Solumedrol 40mg Q8H IVP -Duonebs Q4H prn shortness of breath -Layinfavi71ne PO Q24 [facility] -Morphine 2mg IVP Q6 PRN -Mucinex 600mg PO BID and phenergen 5ml Q6H prn cough -Pulmonology on consult, Dr Leo, help appreciated Dysphagia -Patient admits to dysphagia to solids for the past week -Has not seen GI in 3 years -Last EGD 10/2019 showed eosinophilic esophagitis -GI on consult, Dr Hadley, help appreciated -resolved cough-induced emesis -continue modified diet with initiation of elimination diet-dairy, wheat -pulmonology managing bronchitis- follow up recommendations -continue PPI BID on discharge for EoE management -recommend outpatient GI follow up for continued re-evaluation of EoE once respiratory status optimized for repeat endoscopic evaluation -please contact with questions or concerns GI/DVT ppx: -Protonix 40mg IVP daily -Lovenox 40mg SC daily Dispo: Patient likely to be discharged tomorrow. F/u with GI as an outpatient basis. Plan discussed with Dr Percy Conrad, PGY-2
--- NOTE | 2019-01-27 19:38 | CP.PCM.PN ---
Subjective - Date & Time of Evaluation Date of Evaluation: 01/27/19 - Subjective Subjective: no nausea no dizziness no vomiting no diarrhea Objective - Vital Signs/Intake and Output Vital Signs (last 24 hours): Temp Pulse Resp BP Pulse Ox 97.9 F 86 20 117/69 96 01/27/19 16:00 01/27/19 16:00 01/27/19 16:00 01/27/19 16:00 01/27/19 16:00 Intake and Output: 01/27/19 01/28/19 18:59 06:59 Intake Total 200 Balance 200 - Medications Medications: Current Medications Albuterol/Ipratropium (Duoneb 3 Mg/0.5 Mg (3 Ml) Ud) 3 ml INH RQ6 [facility] Last Admin: 01/27/19 13:20 Dose: 3 ml Budesonide (Pulmicort Respules) 0.5 mg INH RQ12 [facility] Last Admin: 01/27/19 08:40 Dose: 0.5 mg Enoxaparin Sodium (Lovenox) 40 mg SC DAILY [facility] Last Admin: 01/27/19 09:16 Dose: 40 mg Guaifenesin (Mucinex La) 600 mg PO BID [facility] Last Admin: 01/27/19 17:00 Dose: 600 mg Ceftriaxone Sodium 1 gm/ (Sodium Chloride) 100 mls @ 100 mls/hr IVPB DAILY [facility]; Protocol Last Admin: 01/27/19 09:55 Dose: 100 mls/hr Azithromycin 500 mg/ Sodium (Chloride) 250 mls @ 250 mls/hr IVPB Q24H [facility]; Protocol Last Admin: 01/27/19 11:13 Dose: 250 mls/hr Methylprednisolone (Solu-Medrol) 40 mg IVPB Q8H [facility] Last Admin: 01/27/19 16:49 Dose: 40 mg Montelukast Sodium (Singulair) 10 mg PO HS [facility] Last Admin: 01/26/19 21:42 Dose: 10 mg Morphine Sulfate (Morphine) 2 mg IVP Q6 PRN PRN Reason: Pain, Mild (1-3) Last Admin: 01/25/19 23:18 Dose: 2 mg Pantoprazole Sodium (Protonix Inj) 40 mg IVP Q12H [facility] Last Admin: 01/27/19 16:50 Dose: 40 mg Promethazine HCl/Dextromethorphan (Phenergan Dm Syrup) 5 ml PO Q6H PRN PRN Reason: Cough Last Admin: 01/27/19 04:41 Dose: 5 ml - Labs Labs: 01/27/19 06:41 01/27/19 06:41 - Constitutional Appears: Well - Head Exam Head Exam: ATRAUMATIC, NORMAL INSPECTION, NORMOCEPHALIC - Eye Exam Eye Exam: EOMI, Normal appearance, PERRL Pupil Exam: NORMAL ACCOMODATION, PERRL - ENT Exam ENT Exam: Mucous Membranes Moist, Normal Exam - Neck Exam Neck Exam: Full ROM, Normal Inspection. absent: Lymphadenopathy - Respiratory Exam Respiratory Exam: Decreased Breath Sounds - Cardiovascular Exam Cardiovascular Exam: REGULAR RHYTHM, +S1, +S2 - GI/Abdominal Exam GI & Abdominal Exam: Soft, Diminished Bowel Sounds - Rectal Exam Rectal Exam: Deferred Assessment and Plan - Assessment and Plan (Free Text) Plan: patient examined today labs reviewed vitals reviewed medications reviewed azithromycin 500mg ceftriaxone sodium 1gm duoneb 3mg/0.5mg 3ml ud lovenox morphine mucinex la phenergan dm syrup protonix inj pulmicort respules singulair solu-medrol
[2019-01-28] MEDS: MethylPREDNISolone 40 mg Vial IVPB SCH ×3 (00:09→16:20)
[2019-01-28] MEDS: Albuterol-Ipratrop 3 mg / 0.5 (3 ml) UD INH SCH ×4 (02:07→19:57)
[2019-01-28 07:44] LABS: BASO % 0.2 % (0.0-2.0); HEMOGLOBIN 13.2 g/dL (11.0-16.0); LYMPH # 1.4 K/uL (1.0-4.3); LYMPH % 9.7 % (20.0-40.0); MEAN CELL VOLUME 89.9 fL (81.0-99.0); MEAN CORPUSCULAR HEMOGLOBIN 29.8 pg (27.0-31.0); MEAN CORPUSCULAR HGB CONC 33.2 g/dL (33.0-37.0); MEAN PLATELET VOLUME 10.3 fL (7.2-11.7); MONO # 0.5 K/uL (0.0-0.8); MONO % 3.1 % (0.0-10.0); NEUT # 12.8 K/uL (1.8-7.0); PLATELET COUNT 306 K/uL (130-400); RBC 4.41 Mil/uL (3.80-5.20); RED CELL DISTRIBUTION WIDTH 14.6 % (11.5-14.5); WHITE BLOOD COUNT 14.7 K/uL (4.8-10.8)
[2019-01-28 08:01] VITALS: RESP 20
[2019-01-28 08:05] LABS: ALB/GLOB RATIO 1.3 (1.0-2.1); ALBUMIN 4.1 g/dL (3.5-5.0); ALT/SGPT 28 U/L (9-52); AST/SGOT 18 U/L (14-36); BLOOD UREA NITROGEN 13 mg/dL (7-17); CALCIUM 9.6 mg/dl (8.6-10.4); GFR NON-AFRICAN AMERICAN > 60
[2019-01-28] MEDS: Budesonide 0.5 mg/2 ml Inhal Susp UD INH SCH ×2 (08:25→19:57)
[2019-01-28] MEDS: Enoxaparin 40 mg Syringe SC SCH (09:21)
[2019-01-28] MEDS: guaiFENesin 600 mg ER Tab PO SCH ×2 (09:21→18:02)
--- NOTE | 2019-01-28 10:11 | CP.PCM.PN ---
Subjective - Date & Time of Evaluation Date of Evaluation: 01/28/19 Time of Evaluation: 07:00 - Subjective Subjective: Patient seen and examined Breathing much improved Slight cough Nauseous in the morning Afebrile Objective - Vital Signs/Intake and Output Vital Signs (last 24 hours): Temp Pulse Resp BP Pulse Ox 97.5 F L 67 20 117/70 97 01/28/19 08:00 01/28/19 08:00 01/28/19 08:00 01/28/19 08:00 01/28/19 08:00 Intake and Output: 01/28/19 01/28/19 06:59 18:59 Intake Total 400 Balance 400 - Medications Medications: Current Medications Albuterol/Ipratropium (Duoneb 3 Mg/0.5 Mg (3 Ml) Ud) 3 ml INH RQ6 [facility] Last Admin: 01/28/19 08:25 Dose: 3 ml Budesonide (Pulmicort Respules) 0.5 mg INH RQ12 [facility] Last Admin: 01/28/19 08:25 Dose: 0.5 mg Enoxaparin Sodium (Lovenox) 40 mg SC DAILY [facility] Last Admin: 01/28/19 09:21 Dose: 40 mg Guaifenesin (Mucinex La) 600 mg PO BID [facility] Last Admin: 01/28/19 09:21 Dose: 600 mg Ceftriaxone Sodium 1 gm/ (Sodium Chloride) 100 mls @ 100 mls/hr IVPB DAILY [facility]; Protocol Last Admin: 01/28/19 09:42 Dose: 100 mls/hr Azithromycin 500 mg/ Sodium (Chloride) 250 mls @ 250 mls/hr IVPB Q24H [facility]; Protocol Last Admin: 01/27/19 11:13 Dose: 250 mls/hr Methylprednisolone (Solu-Medrol) 40 mg IVPB Q8H [facility] Last Admin: 01/28/19 08:58 Dose: 40 mg Montelukast Sodium (Singulair) 10 mg PO HS [facility] Last Admin: 01/27/19 21:02 Dose: 10 mg Morphine Sulfate (Morphine) 2 mg IVP Q6 PRN PRN Reason: Pain, Mild (1-3) Last Admin: 01/25/19 23:18 Dose: 2 mg Pantoprazole Sodium (Protonix Inj) 40 mg IVP Q12H [facility] Last Admin: 03/30/19 05:16 Dose: 40 mg Promethazine HCl/Dextromethorphan (Phenergan Dm Syrup) 5 ml PO Q6H PRN PRN Reason: Cough Last Admin: 01/27/19 04:41 Dose: 5 ml - Labs Labs: 01/28/19 07:26 01/28/19 07:26 - Head Exam Head Exam: ATRAUMATIC, NORMOCEPHALIC - ENT Exam ENT Exam: Mucous Membranes Moist - Neck Exam Neck Exam: Normal Inspection - Respiratory Exam Respiratory Exam: Clear to Ausculation Bilateral - Cardiovascular Exam Cardiovascular Exam: REGULAR RHYTHM Assessment and Plan (1) Acute bronchospasm Assessment & Plan: Secondary to asthma Discharge patient home on prednisone, rescue inhaler, Singulair And ICS Stable from pulmonary standpoint Follow-up in the office Status: Acute (2) Bronchitis Status: Acute
--- NOTE | 2019-01-28 10:22 | CP.PCM.PN ---
Subjective - Date & Time of Evaluation Date of Evaluation: 01/28/19 - Subjective Subjective: mildly nauseous although feels much betterinterms of sob and cough has reduced significantly no fever no vomitting Objective - Vital Signs/Intake and Output Vital Signs (last 24 hours): Temp Pulse Resp BP Pulse Ox 97.5 F L 67 20 117/70 97 01/28/19 08:00 01/28/19 08:00 01/28/19 08:00 01/28/19 08:00 01/28/19 08:00 Intake and Output: 01/28/19 01/28/19 06:59 18:59 Intake Total 400 Balance 400 - Medications Medications: Current Medications Albuterol/Ipratropium (Duoneb 3 Mg/0.5 Mg (3 Ml) Ud) 3 ml INH RQ6 ASHLEY Last Admin: 01/28/19 08:25 Dose: 3 ml Budesonide (Pulmicort Respules) 0.5 mg INH RQ12 ASHLEY Last Admin: 01/28/19 08:25 Dose: 0.5 mg Enoxaparin Sodium (Lovenox) 40 mg SC DAILY ASHLEY Last Admin: 01/28/19 09:21 Dose: 40 mg Guaifenesin (Mucinex La) 600 mg PO BID ASHLEY Last Admin: 01/28/19 09:21 Dose: 600 mg Ceftriaxone Sodium 1 gm/ (Sodium Chloride) 100 mls @ 100 mls/hr IVPB DAILY [facility]; Protocol Last Admin: 01/28/19 09:42 Dose: 100 mls/hr Azithromycin 500 mg/ Sodium (Chloride) 250 mls @ 250 mls/hr IVPB Q24H ASHLEY; Protocol Last Admin: 01/27/19 11:13 Dose: 250 mls/hr Methylprednisolone (Solu-Medrol) 40 mg IVPB Q8H ASHLEY Last Admin: 01/28/19 08:58 Dose: 40 mg Montelukast Sodium (Singulair) 10 mg PO HS ASHLEY Last Admin: 01/27/19 21:02 Dose: 10 mg Morphine Sulfate (Morphine) 2 mg IVP Q6 PRN PRN Reason: Pain, Mild (1-3) Last Admin: 01/25/19 23:18 Dose: 2 mg Pantoprazole Sodium (Protonix Inj) 40 mg IVP Q12H ASHLEY Last Admin: 01/28/19 05:16 Dose: 40 mg Promethazine HCl/Dextromethorphan (Phenergan Dm Syrup) 5 ml PO Q6H PRN PRN Reason: Cough Last Admin: 01/27/19 04:41 Dose: 5 ml - Labs Labs: 01/28/19 07:26 01/28/19 07:26 - Constitutional Appears: Well - Head Exam Head Exam: ATRAUMATIC, NORMAL INSPECTION, NORMOCEPHALIC - Eye Exam Eye Exam: EOMI, Normal appearance, PERRL Pupil Exam: NORMAL ACCOMODATION, PERRL - ENT Exam ENT Exam: Mucous Membranes Moist, Normal Exam - Neck Exam Neck Exam: Full ROM, Normal Inspection. absent: Lymphadenopathy - Respiratory Exam Respiratory Exam: Decreased Breath Sounds - Cardiovascular Exam Cardiovascular Exam: REGULAR RHYTHM, +S1, +S2 - GI/Abdominal Exam GI & Abdominal Exam: Soft, Diminished Bowel Sounds - Rectal Exam Rectal Exam: Deferred Assessment and Plan - Assessment and Plan (Free Text) Plan: patient evaluated today medication reviewed azithromycin 500mg ceftriaxone sodium 1gm cepacol sore throat dunoeb duoneb 3mg/0.5 mg 3ml ud lovenox morphine mucinex la phenergan dm syrup protonix inj pulmicort respules singulair solu-medrol labs and vitals reviewed
[2019-01-28 10:23] LABS: ANISOCYTOSIS SLIGHT; BANDS 1 % (0-2); LYMPHOCYTE 8 % (20-40); MONOCYTE 2 % (0-10); NEUTROPHIL 89 % (50-75); PLATELET ESTIMATE NORMAL (NORMAL); TOTAL CELLS COUNTED 100
[2019-01-28 10:24] LABS: LARGE PLATELETS PRESENT
[2019-01-28] MEDS: Azithromycin 500 MG in Sodium Chloride 0.9% 250 ML IVPB SCH (10:48)
[2019-01-28] MEDS ORDERED: Benzocaine/Menthol (Cepacol) Lozenge MT PRN (12:18)
[2019-01-28] MEDS: Promethazine DM 6.25 mg-15 mg/5 ml Syrup PO PRN (17:56)
[2019-01-29] MEDS: MethylPREDNISolone 40 mg Vial IVPB SCH ×3 (00:50→16:20)
[2019-01-29] MEDS: Albuterol-Ipratrop 3 mg / 0.5 (3 ml) UD INH SCH ×4 (03:00→20:23)
[2019-01-29 08:50] LABS: BASO # 0.1 K/uL (0.0-0.2); BASO % 0.6 % (0.0-2.0); HEMOGLOBIN 13.8 g/dL (11.0-16.0); LYMPH # 1.6 K/uL (1.0-4.3); LYMPH % 13.1 % (20.0-40.0); MEAN CELL VOLUME 90.3 fL (81.0-99.0); MEAN CORPUSCULAR HEMOGLOBIN 30.2 pg (27.0-31.0); MEAN CORPUSCULAR HGB CONC 33.5 g/dL (33.0-37.0); MEAN PLATELET VOLUME 9.9 fL (7.2-11.7); MONO # 0.7 K/uL (0.0-0.8); NEUT % 80.3 % (50.0-75.0); NRBC % 0.1 % (0.0-2.0); RBC 4.57 Mil/uL (3.80-5.20); RED CELL DISTRIBUTION WIDTH 14.6 % (11.5-14.5); WHITE BLOOD COUNT 12.5 K/uL (4.8-10.8)
[2019-01-29] MEDS: Budesonide 0.5 mg/2 ml Inhal Susp UD INH SCH ×2 (09:00→20:23)
[2019-01-29 09:01] LABS: ALB/GLOB RATIO 1.5 (1.0-2.1); ALBUMIN 4.3 g/dL (3.5-5.0); ALT/SGPT 38 U/L (9-52); AST/SGOT 29 U/L (14-36); BLOOD UREA NITROGEN 13 mg/dL (7-17); CALCIUM 9.5 mg/dl (8.6-10.4); GFR NON-AFRICAN AMERICAN > 60
[2019-01-29] MEDS: Enoxaparin 40 mg Syringe SC SCH (09:42)
[2019-01-29] MEDS: guaiFENesin 600 mg ER Tab PO SCH ×2 (09:42→17:52)
[2019-01-29] MEDS: Azithromycin 500 MG in Sodium Chloride 0.9% 250 ML IVPB SCH (10:56)
--- NOTE | 2019-01-29 14:05 | CP.PCM.PN ---
Subjective - Date & Time of Evaluation Date of Evaluation: 01/29/19 - Subjective Subjective: mild hoarseness of vboicve much betteratleast cantalk without coughing no nsuea or vomitting no fever possible dc tomorrow if stable Objective - Vital Signs/Intake and Output Vital Signs (last 24 hours): Temp Pulse Resp BP Pulse Ox 97.8 F 64 20 112/69 95 01/29/19 08:32 01/29/19 08:32 01/29/19 08:32 01/29/19 08:32 01/29/19 08:32 Intake and Output: 01/29/19 01/29/19 06:59 18:59 Intake Total 650 Balance 650 - Medications Medications: Current Medications Albuterol/Ipratropium (Duoneb 3 Mg/0.5 Mg (3 Ml) Ud) 3 ml INH RQ6 ASHLEY Last Admin: 01/29/19 09:00 Dose: 3 ml Benzocaine/Menthol (Cepacol Sore Throat) 1 matthew MT Q6 PRN PRN Reason: Sore Throat Stop: 01/31/19 12:19 Budesonide (Pulmicort Respules) 0.5 mg INH RQ12 ASHLEY Last Admin: 01/29/19 09:00 Dose: 0.5 mg Enoxaparin Sodium (Lovenox) 40 mg SC DAILY ASHLEY Last Admin: 01/29/19 09:42 Dose: 40 mg Guaifenesin (Mucinex La) 600 mg PO BID ASHLEY Last Admin: 01/29/19 09:42 Dose: 600 mg Ceftriaxone Sodium 1 gm/ (Sodium Chloride) 100 mls @ 100 mls/hr IVPB DAILY [facility]; Protocol Last Admin: 01/29/19 09:42 Dose: 100 mls/hr Azithromycin 500 mg/ Sodium (Chloride) 250 mls @ 250 mls/hr IVPB Q24H [facility]; Protocol Last Admin: 01/29/19 10:56 Dose: 250 mls/hr Methylprednisolone (Solu-Medrol) 40 mg IVPB Q8H ASHLEY Last Admin: 01/29/19 07:36 Dose: 40 mg Montelukast Sodium (Singulair) 10 mg PO HS ASHLEY Last Admin: 01/28/19 21:10 Dose: 10 mg Morphine Sulfate (Morphine) 2 mg IVP Q6 PRN PRN Reason: Pain, Mild (1-3) Last Admin: 01/25/19 23:18 Dose: 2 mg Pantoprazole Sodium (Protonix Inj) 40 mg IVP Q12H ASHLEY Last Admin: 01/29/19 05:03 Dose: 40 mg Promethazine HCl/Dextromethorphan (Phenergan Dm Syrup) 5 ml PO Q6H PRN PRN Reason: Cough Last Admin: 01/28/19 17:56 Dose: 5 ml - Labs Labs: 01/29/19 08:15 01/29/19 08:15 - Constitutional Appears: Well - Head Exam Head Exam: ATRAUMATIC, NORMAL INSPECTION, NORMOCEPHALIC - Eye Exam Eye Exam: EOMI, Normal appearance, PERRL Pupil Exam: NORMAL ACCOMODATION, PERRL - ENT Exam ENT Exam: Mucous Membranes Moist, Normal Exam - Neck Exam Neck Exam: Full ROM, Normal Inspection. absent: Lymphadenopathy - Respiratory Exam Respiratory Exam: Decreased Breath Sounds - Cardiovascular Exam Cardiovascular Exam: REGULAR RHYTHM, +S1, +S2 - GI/Abdominal Exam GI & Abdominal Exam: Soft, Diminished Bowel Sounds - Rectal Exam Rectal Exam: Deferred Assessment and Plan - Assessment and Plan (Free Text) Plan: labs, medications and vitals reviewed azithromycin 500mg ceftriaxone sodium 1gm cepacol sore throat duoneb 3mg/0.5mg 3ml ud lovenox morphine mucinex la phenergan dm syrup protonix inj pulmicort respulses singulair solu-medrol family member bedside
[2019-01-29] MEDS: Promethazine DM 6.25 mg-15 mg/5 ml Syrup PO PRN ×2 (15:03→21:14)
[2019-01-30] MEDS: MethylPREDNISolone 40 mg Vial IVPB SCH ×2 (00:03→07:23)
[2019-01-30] MEDS: Albuterol-Ipratrop 3 mg / 0.5 (3 ml) UD INH SCH ×2 (01:02→08:53)
[2019-01-30 07:20] LABS: BASO % 0.3 % (0.0-2.0); HEMOGLOBIN 14.4 g/dL (11.0-16.0); LYMPH # 1.4 K/uL (1.0-4.3); LYMPH % 12.3 % (20.0-40.0); MEAN CELL VOLUME 89.6 fL (81.0-99.0); MEAN CORPUSCULAR HEMOGLOBIN 29.8 pg (27.0-31.0); MEAN CORPUSCULAR HGB CONC 33.2 g/dL (33.0-37.0); MEAN PLATELET VOLUME 9.9 fL (7.2-11.7); MONO # 0.6 K/uL (0.0-0.8); MONO % 4.7 % (0.0-10.0); NEUT # 9.6 K/uL (1.8-7.0); NEUT % 82.7 % (50.0-75.0); NRBC % 0.1 % (0.0-2.0); RBC 4.86 Mil/uL (3.80-5.20); RED CELL DISTRIBUTION WIDTH 13.8 % (11.5-14.5); WHITE BLOOD COUNT 11.6 K/uL (4.8-10.8)
[2019-01-30 07:41] LABS: ALB/GLOB RATIO 1.4 (1.0-2.1); ALBUMIN 4.2 g/dL (3.5-5.0); ALT/SGPT 38 U/L (9-52); AST/SGOT 21 U/L (14-36); BLOOD UREA NITROGEN 16 mg/dL (7-17); CALCIUM 9.4 mg/dl (8.6-10.4); GFR NON-AFRICAN AMERICAN > 60
[2019-01-30 08:38] VITALS: BP 105/69; PULSE 64; TEMP 97.8; O2SAT 96
[2019-01-30] MEDS: Budesonide 0.5 mg/2 ml Inhal Susp UD INH SCH (08:53)
[2019-01-30] MEDS: Enoxaparin 40 mg Syringe SC SCH (09:32)
[2019-01-30] MEDS: guaiFENesin 600 mg ER Tab PO SCH (09:32)
[2019-01-30] MEDS: Azithromycin 500 MG in Sodium Chloride 0.9% 250 ML IVPB SCH (10:24)
--- NOTE | 2019-01-30 12:54 | CP.PCM.PN ---
Subjective - Date & Time of Evaluation Date of Evaluation: 01/30/19 Time of Evaluation: 12:54 - Subjective Subjective: Medicine Progress Note: Dr. Renu Roberson Service Patient seen and examined at bedside. Per nursing no acute events occurred overnight. Patient reports an improvement in cough symptoms on today's visit. Patient denies any fevers, chills, headaches, dizziness, syncopal episodes, or any other complaints. Objective - Vital Signs/Intake and Output Vital Signs (last 24 hours): Temp Pulse Resp BP Pulse Ox 97.8 F 64 20 105/69 96 01/30/19 08:00 01/30/19 08:00 01/30/19 08:00 01/30/19 08:00 01/30/19 08:00 Intake and Output: 01/30/19 01/30/19 06:59 18:59 Intake Total 240 Balance 240 - Medications Medications: Current Medications Albuterol/Ipratropium (Duoneb 3 Mg/0.5 Mg (3 Ml) Ud) 3 ml INH RQ6 ASHLEY Last Admin: 01/30/19 08:53 Dose: 3 ml Benzocaine/Menthol (Cepacol Sore Throat) 1 matthew MT Q6 PRN PRN Reason: Sore Throat Stop: 01/31/19 12:19 Last Admin: 01/29/19 15:03 Dose: 1 matthew Budesonide (Pulmicort Respules) 0.5 mg INH RQ12 ASHLEY Last Admin: 01/30/19 08:53 Dose: 0.5 mg Enoxaparin Sodium (Lovenox) 40 mg SC DAILY [facility] Last Admin: 01/30/19 09:32 Dose: 40 mg Guaifenesin (Mucinex La) 600 mg PO BID ASHLEY Last Admin: 01/30/19 09:32 Dose: 600 mg Ceftriaxone Sodium 1 gm/ (Sodium Chloride) 100 mls @ 100 mls/hr IVPB DAILY [facility]; Protocol Last Admin: 01/30/19 09:31 Dose: 100 mls/hr Azithromycin 500 mg/ Sodium (Chloride) 250 mls @ 250 mls/hr IVPB Q24H ASHLEY; Protocol Last Admin: 01/30/19 10:24 Dose: 250 mls/hr Methylprednisolone (Solu-Medrol) 40 mg IVPB Q8H ASHLEY Last Admin: 01/30/19 07:23 Dose: 40 mg Montelukast Sodium (Singulair) 10 mg PO HS ASHLEY Last Admin: 01/29/19 21:14 Dose: 10 mg Morphine Sulfate (Morphine) 2 mg IVP Q6 PRN PRN Reason: Pain, Mild (1-3) Last Admin: 01/25/19 23:18 Dose: 2 mg Pantoprazole Sodium (Protonix Inj) 40 mg IVP Q12H ASHLEY Last Admin: 01/30/19 03:46 Dose: 40 mg Promethazine HCl/Dextromethorphan (Phenergan Dm Syrup) 5 ml PO Q6H PRN PRN Reason: Cough Last Admin: 01/29/19 21:14 Dose: 5 ml - Labs Labs: 01/30/19 07:00 01/30/19 07:00 - Head Exam Head Exam: ATRAUMATIC, NORMAL INSPECTION - Eye Exam Eye Exam: EOMI, Normal appearance, PERRL Pupil Exam: NORMAL ACCOMODATION, PERRL - ENT Exam ENT Exam: Mucous Membranes Moist, Normal Oropharynx - Respiratory Exam Respiratory Exam: Clear to Ausculation Bilateral, NORMAL BREATHING PATTERN. absent: Prolonged Expiratory Phase - Cardiovascular Exam Cardiovascular Exam: REGULAR RHYTHM, +S1, +S2 - GI/Abdominal Exam GI & Abdominal Exam: Soft, Normal Bowel Sounds. absent: Rigid, Hyperactive Marc wel Sounds - Back Exam Back Exam: NORMAL INSPECTION. absent: CVA tenderness (R), paraspinal tenderness - Neurological Exam Neurological Exam: Alert, Awake, CN II-XII Intact, Oriented x3 - Psychiatric Exam Psychiatric exam: Normal Affect, Normal Mood. absent: Depressed - Skin Skin Exam: Dry, Intact Assessment and Plan - Assessment and Plan (Free Text) Plan: Respiratory Distress 2/2 Acute bronchospasm/bronchitis -Stable, afebrile -CXR showed no active disease -Antibiotics: Rocephin 1 gm daily, Azithromycin 250mg daily -Continue Solumedrol 40mg Q8H IVP -Duonebs Q4H prn shortness of breath -[id number] PO Q24 ASHLEY -Morphine 2mg IVP Q6 PRN -Mucinex 600mg PO BID and phenergen 5ml Q6H prn cough -Pulmonology on consult, Dr Leo, help appreciated Dysphagia -Patient admits to dysphagia to solids for the past week -Has not seen GI in 3 years -Last EGD 10/2019 showed eosinophilic esophagitis -GI on consult, Dr Hadley, help appreciated -resolved cough-induced emesis -continue modified diet with initiation of elimination diet-dairy, wheat -pulmonology managing bronchitis- follow up recommendations -continue PPI BID on discharge for EoE management -recommend outpatient GI follow up for continued re-evaluation of EoE once respiratory status optimized for repeat endoscopic evaluation -please contact with questions or concerns GI/DVT ppx: -Protonix 40mg IVP daily -Lovenox 40mg SC daily Dispo: Patient stable for discharge. Discharge Instructions: 1.F/u with PMD within 5 days of discharge. 2. Return to hospital for any new or worsening symptoms. Medications: 1.Mucinex 600mg PO BID 2.Singuilar 10mg PO HS, #30, No refills 3.Prednisone 10mg PO DAILY 4.Ventolin HFA 1 PUFF IH QID 5.Keflex 500mg PO BID Medications: Plan discussed with Dr Percy Conrad, PGY-2
== END 2019-01-30 13:27 | disposition home or self-care (01) | DRG 97 ==
LOC: C.ER 18:53 → C.9E 22:51 → C.3T 23:34 → OBSVTOIN 01-26 14:03
PROVIDERS: ADMIT Internal Medicine Nephrology; ATTEND Internal Medicine Nephrology
DX: J45.901 Unspecified asthma with (acute) exacerbation (principal); J20.9 Acute bronchitis, unspecified; K21.9 Gastro-esophageal reflux disease without esophagitis; E78.5 Hyperlipidemia, unspecified; K20.0 Eosinophilic esophagitis